=== PATIENT | male | born 1955 | race Caucasian/White ===

== ENCOUNTER 2017-10-01 19:46 | Observation (INO) | payer MEDICARE ==
[~2017-10-01] VITALS: Ht 162.6 cm; Wt 94.8 kg
[2017-10-01 20:06] VITALS: BP 94/67
[2017-10-01 21:28] LABS: Basophils # (auto) 0 uL; Basophils % (auto) 0.4 % (0.0-2.0); Eosinophils # (auto) 0 uL; Eosinophils % (auto) 0.9 % (0.0-7.0); Hematocrit 34.3 % (41.0-53.0); Hemoglobin 11.3 g/dL (13.5-17.5); Lymphocytes # (auto) 2.1 uL; Lymphocytes % (auto) 41.6 % (10.0-50.0); Mean Corpuscular Hemoglobin 29.8 pg (28.0-32.0); Mean Corpuscular Hgb Conc. 32.9 g/dL (32.0-36.0); Mean Corpuscular Volume 90.4 fL (80.0-100.0); Monocytes # (auto) 0.4 uL; Monocytes % (auto) 8.4 % (0.0-12.0); Neutrophils # (auto) 2.4 uL; Neutrophils % (auto) 48.7 % (37.0-80.0); Platelet Count (auto) 195 10^3/uL (140-450); Red Blood Cells 3.79 10^6/uL (4.5-5.90); Red Cell Distribution Width 17.5 % (11.8-14.3)
[2017-10-01 21:35] LABS: Alanine Aminotransferase 12 U/L (16-61); Albumin 3.7 g/dL (3.4-5.0); Anion Gap 4 (5-15); Aspartate Aminotransferase 11 U/L (15-37); BUN/Creatinine Ratio 23.2; Blood Alcohol < 3.0 mg/dL (0-5); Blood Urea Nitrogen 16 mg/dL (7-18); Calcium 8.6 mg/dL (8.5-10.1); Carbon Dioxide 31 mmol/L (21-32); Chloride 103 mmol/L (98-107); GFR African American 150 mL/min; GFR Non-African American 124 mL/min; Glucose 139 mg/dL (74-106); Magnesium 1.8 mg/dL (1.6-2.6); Potassium 3.7 mmol/L (3.5-5.1); Sodium 138 mmol/L (136-145)
[2017-10-01 21:37] LABS: Alkaline Phosphatase 91 U/L (45-117); Bilirubin, Total 0.2 mg/dL (0.2-1.0); Total Protein 6.9 g/dL (6.4-8.2)
[2017-10-01 22:14] LABS: INR 1.05 (0.9-1.15); Partial Thromboplastin Time 28.5 sec (22.64-33.71); Prothrombin Time 11.4 sec (9.37-12.3)
== END 2017-10-02 02:49 | disposition left against medical advice (07) | DRG 885 ==
LOC: ER 19:46 → OVERFLOW 22:42 → ER 10-02 02:48
PROVIDERS: ADMIT Emergency Medicine; ATTEND Emergency Medicine
DX: F31.9 Bipolar disorder, unspecified (principal); Z91.14 Patient's other noncompliance with medication regimen; F20.9 Schizophrenia, unspecified; F17.210 Nicotine dependence, cigarettes, uncomplicated; Z59.0 Homelessness
CPT/HCPCS: 36415; 80053; 80320; 80329; 83735; 85025; 85610; 85730; 99285; G0378

== ENCOUNTER 2017-10-02 18:39 | Emergency (ER) | payer MEDICARE ==
[~2017-10-02] VITALS: Ht 162.6 cm; Wt 81.6 kg
[2017-10-02 19:49] LABS: Basophils # (auto) 0 uL; Basophils % (auto) 0.3 % (0.0-2.0); Eosinophils # (auto) 0.1 uL; Eosinophils % (auto) 1.5 % (0.0-7.0); Hematocrit 35.3 % (41.0-53.0); Mean Corpuscular Hemoglobin 30.2 pg (28.0-32.0); Mean Corpuscular Hgb Conc. 31.2 g/dL (32.0-36.0); Mean Corpuscular Volume 96.8 fL (80.0-100.0); Monocytes # (auto) 0.4 uL; Monocytes % (auto) 8.5 % (0.0-12.0); Neutrophils # (auto) 2.3 uL; Neutrophils % (auto) 47.7 % (37.0-80.0); Nucleated Red Blood Cells % 0.2 %; Platelet Count (auto) 175 10^3/uL (140-450); Red Blood Cells 3.65 10^6/uL (4.5-5.90); Red Cell Distribution Width 18.3 % (11.8-14.3); White Blood Cell 4.7 10^3/uL (4.4-10.8)
[2017-10-02 19:54] LABS: Alanine Aminotransferase 12 U/L (16-61); Albumin 3.4 g/dL (3.4-5.0); Aspartate Aminotransferase 10 U/L (15-37); BUN/Creatinine Ratio 25.7; Blood Alcohol < 3.0 mg/dL (0-5); Blood Urea Nitrogen 18 mg/dL (7-18); Calcium 8.4 mg/dL (8.5-10.1); Carbon Dioxide 30 mmol/L (21-32); GFR African American 147 mL/min; GFR Non-African American 122 mL/min; Glucose 109 mg/dL (74-106)
[2017-10-02 19:57] LABS: Acetaminophen < 2.0 ug/mL (10-30); Salicylate < 1.7 mg/dL (2.8-20.0)
[2017-10-02 20:12] LABS: Anion Gap 5 (5-15); Chloride 106 mmol/L (98-107); Sodium 141 mmol/L (136-145)
[2017-10-02 20:16] LABS: Alkaline Phosphatase 97 U/L (45-117); Bilirubin, Total 0.2 mg/dL (0.2-1.0); Total Protein 6.5 g/dL (6.4-8.2)
[2017-10-02 20:32] LABS: Magnesium 1.9 mg/dL (1.6-2.6)
[2017-10-02 20:44] LABS: INR 1.02 (0.9-1.15); Partial Thromboplastin Time 29.3 sec (22.64-33.71); Prothrombin Time 11.1 sec (9.37-12.3)
[2017-10-02 21:18] VITALS: BP 125/83
== END 2017-10-02 21:30 | disposition left against medical advice (07) ==
LOC: EDBD 18:39 → ER 18:42
DX: F20.9 Schizophrenia, unspecified (principal); F17.210 Nicotine dependence, cigarettes, uncomplicated; F31.9 Bipolar disorder, unspecified; Z53.29 Procedure and treatment not carried out because of patient's decision for other reasons
CPT/HCPCS: 36415; 71045; 80053; 80320; 80329; 83735; 84443; 84484; 85025; 85610; 85730; 94761

== ENCOUNTER 2017-10-03 13:18 | Emergency (ER) | payer MEDICARE ==
[~2017-10-03] VITALS: Ht 162.6 cm; Wt 81.6 kg
[2017-10-03 17:13] LABS: Basophils # (auto) 0 uL; Basophils % (auto) 0.3 % (0.0-2.0); Eosinophils # (auto) 0.1 uL; Eosinophils % (auto) 1.6 % (0.0-7.0); Hematocrit 30.7 % (41.0-53.0); Hemoglobin 10.4 g/dL (13.5-17.5); Lymphocytes # (auto) 1.7 uL; Lymphocytes % (auto) 38.2 % (10.0-50.0); Mean Corpuscular Hemoglobin 30.6 pg (28.0-32.0); Monocytes # (auto) 0.4 uL; Monocytes % (auto) 8.4 % (0.0-12.0); Neutrophils # (auto) 2.3 uL; Neutrophils % (auto) 51.5 % (37.0-80.0); Platelet Count (auto) 198 10^3/uL (140-450); Red Blood Cells 3.41 10^6/uL (4.5-5.90); Red Cell Distribution Width 17.9 % (11.8-14.3); White Blood Cell 4.4 10^3/uL (4.4-10.8)
[2017-10-03 17:32] LABS: Anion Gap 3 (5-15); Blood Urea Nitrogen 14 mg/dL (7-18); Calcium 7.8 mg/dL (8.5-10.1); Carbon Dioxide 31 mmol/L (21-32); Chloride 108 mmol/L (98-107); Glucose 152 mg/dL (74-106); Magnesium 1.8 mg/dL (1.6-2.6); Potassium 3.8 mmol/L (3.5-5.1); Salicylate < 1.7 mg/dL (2.8-20.0); Sodium 142 mmol/L (136-145)
[2017-10-03 17:34] LABS: Acetaminophen < 2.0 ug/mL (10-30); BUN/Creatinine Ratio 20.3; Blood Alcohol < 3.0 mg/dL (0-5); GFR African American 150 mL/min; GFR Non-African American 124 mL/min
[2017-10-03 17:36] LABS: Alanine Aminotransferase 11 U/L (16-61); Alkaline Phosphatase 89 U/L (45-117); Aspartate Aminotransferase 10 U/L (15-37); Bilirubin, Total 0.2 mg/dL (0.2-1.0); Total Protein 5.9 g/dL (6.4-8.2)
[2017-10-03 20:00] VITALS: BP 138/68
== END 2017-10-03 21:32 | disposition left against medical advice (07) ==
LOC: EDBD 13:18 → ER 13:18 → EDUNIT# 13:18 → ER 21:32
DX: F41.9 Anxiety disorder, unspecified (principal); F32.9 Major depressive disorder, single episode, unspecified; F17.210 Nicotine dependence, cigarettes, uncomplicated; R44.3 Hallucinations, unspecified; Z59.0 Homelessness
CPT/HCPCS: 36415; 80053; 80320; 80329; 83735; 85025; 93005; 94761

== ENCOUNTER 2020-07-02 13:29 | Emergency (ER) | payer MEDICARE, MEDICAID ==
[~2020-07-02] VITALS: Ht 170.2 cm; Wt 99.8 kg
[2020-07-02 13:35] VITALS: BP 129/77
== END 2020-07-02 13:50 | disposition left against medical advice (07) ==
LOC: ER 13:29
DX: R44.0 Auditory hallucinations (principal); Z53.21 Procedure and treatment not carried out due to patient leaving prior to being seen by health care provider